=== PATIENT | male | born 1930 | race Caucasian/White ===

== ENCOUNTER 2017-02-18 20:52 | Inpatient (IN) | payer MEDICARE, BC ==
[~2017-02-18] VITALS: Ht 177.8 cm; Wt 98.1 kg
[~2017-02-18 20:52] MED LIST: AMLO10TA PO; ASPI1TAB PO; ASPI81TA PO; BACITAB PO; BUPR15TA PO; DULC10SU2 PO; ELIQ2.5T PO; ENTO3CAP5 PO; EUCECRE3 TOP; FERR32TA PO; FLON0.054; FLUD0.1T PO; FURO20TA2 PO; IMOD2CHW PO; KLOR1TAB77 PO; LASI20TA PO; LOVA40TA PO; MAGN1TAB25 PO; MAGNESIUM HYDROXIDE PO; MAPA325T2 PO; MEGA40SU PO; MEGE400S9 PO; METO100T5 PO; METO50TA2 PO; MICR10CA PO; REME15TA PO; SPIR25TA2 PO; TAMS0.4C2 PO; TRAM50TA2 PO; TYLE325T5 PO; VITA100072 PO; VITA500T PO; WELL100T PO
[2017-02-18 22:41] LABS: BASO % 0.5 % (0.0-1.0); EOS # 0.1 10^3/uL (0.0-0.50); EOS % 1.2 % (0.0-3.0); IMMATURE GRANULOCYTE % 0.4 % (0-0); LYMPH # 1.7 10^3/uL (1.5-4.5); LYMPH % 19.6 % (24.0-44.0); MEAN CORPUSCULAR HEMOGLOBIN 33.1 pg (27.0-33.0); MEAN CORPUSCULAR HGB CONC 34.1 g/dl (32.0-36.5); MEAN CORPUSCULAR VOLUME 97.1 fl (80.0-96.0); MONO # 0.8 10^3/uL (0.0-0.8); MONO % 9.6 % (0.0-5.0); NEUTROPHILS # 5.8 10^3/uL (1.8-7.7); NEUTROPHILS % 68.7 % (36.0-66.0); PLATELET COUNT, AUTOMATED 140 10^3/uL (150-450); RED CELL DISTRIBUTION WIDTH 12.7 % (11.5-14.5); WHITE BLOOD COUNT 8.5 10^3/uL (4.0-10.0)
[2017-02-18 23:05] LABS: ALBUMIN 3.2 GM/DL (3.2-5.2); ALBUMIN/GLOBULIN RATIO 0.78 (1.00-1.93); BILIRUBIN,DIRECT 0.2 MG/DL (0.0-0.2); BILIRUBIN,TOTAL 0.8 MG/DL (0.2-1.0); CALCIUM LEVEL 9.1 MG/DL (8.8-10.2); CREATININE FOR GFR 1.88 MG/DL (0.70-1.30); GLOMERULAR FILTRATION RATE 36.4 (>35); INR 1.44; POTASSIUM SERUM 3.9 MEQ/L (3.5-5.1); TOTAL PROTEIN 7.3 GM/DL (6.4-8.2)
--- NOTE | 2017-02-18 23:30 | REPUSA ---
CT of the head Clinical history: trauma. Comparison: 14. Protocol: Multiple axial CT images obtained with 5 mm slice thickness were obtained through the head without administration of contrast. Findings: The ventricles and sulci are symmetric but prominent in size bilaterally. There are periven tricular areas of low attenuation throughout the deep white matter. There is no evidence of acute hem orrhage or infarct. There is no midline shift, mass effect, or extra-axial fluid collection. The osse ous structures are unremarkable. The visualized paranasal sinuses and mastoid air cells are clear. Impression: No acute hemorrhage or infarct. Findings are consistent with age-related atrophy and cytotechnologist/histotechnologist maurizio small vessel ischemic disease.
--- NOTE | 2017-02-18 23:30 | REPUSA ---
CT of the abdomen and pelvis without contrast Clinical statement: nausea, vomiting, diarrhea. Technique: Multiple axial CT images were obtained from the base of the lungs to the floor of the pelv is utilizing 5 mm axial slices without administration of contrast. Coronal and sagittal reconstructio ns were also obtained. Comparison: 05/29/2014. Findings: Chest: There is patchy infiltrate in the right lower lobe. Bandlike infiltrate is seen in the lingula of the left lung. Abdomen: The kidneys are normal in size bilaterally. There is no evidence of hydronephrosis or nephro lithiasis. The liver, spleen, pancreas, gallbladder and adrenal glands are unremarkable. The aorta de monstrates normal caliber and contour. There is no abdominal lymphadenopathy or ascites. Pelvis: The bowel is unremarkable, with no obstructive or inflammatory changes. Moderate diffuse sigm oid diverticulosis is noted, without evidence of diverticulitis. The urinary bladder is within normal limits. There is no pelvic lymphadenopathy or ascites. The other pelvic structures appear unremarkab le. Bones: There are no suspicious osseous abnormalities seen. Moderately severe multilevel degenerative disc disease is noted throughout the lower thoracic and lumbar spine. Moderate osteoarthritis of the hip joints is seen bilaterally. Open reduction internal fixation of the proximal left femur is intact . Impression: 1. No obstructive or inflammatory bowel changes. Diffuse sigmoid diverticulosis. 2. No evidence of hydronephrosis or nephrolithiasis. 3. Infiltrate/atelectasis in the right lower lobe. Bandlike infiltrate likely representing scarring i s seen in the lingula of the left lung. 4. Moderately severe multilevel degenerative disc disease and spondylosis is seen throughout spine as described. 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
[2017-02-19] MEDS ORDERED: NS 500 ML IV ONE (00:45)
[2017-02-19] MEDS ORDERED: ELIQ2.5T PO (01:16)
[2017-02-19] MEDS ORDERED: FLOM5CAP PO (01:16)
[2017-02-19] MEDS ORDERED: PATIENT COMMENT (01:18)
[2017-02-19] MEDS ORDERED: NS 1,000 ML IV SCH (04:12)
[2017-02-19] MEDS ORDERED: ACETAMINOPHEN 500 MG TAB PO PRN (04:30)
[2017-02-19] MEDS ORDERED: ONDANSETRON 4MG/2ML VIAL (J2405) IV PRN (04:30)
--- NOTE | 2017-02-19 04:35 | HPEPDOC ---
General Date of Admission 02/19/2017 Primary Care Physician: SUZY PRICE DO Attending Physician: PARAM ROUSE MD Chief Complaint The patient is a 86-year-old male admitted with a reason for visit of Medical Complaint. Source: Patient Exam Limitations: Mild cognitive slowing History of Present Illness Mr. Mcgee is an 86-year-old male who is brought to the emergency department presumably by his son for evaluation of diarrhea, and perhaps gait instability and fall. Regrettably, no family is available at this time to provide history. Apparently there were earlier but have since gone home. The patient is not a very good historian, he is oriented 3, but often forgets the question and needs constant prompting, and even when he is in the middle of giving an answer he will lose his train of thought and will ask what the question was once again. It appears that he has had diarrhea for at least a couple of months, and he fell and hit his head on a dresser yesterday, therefore he does have a scalp skin tear on the anterior midline. Apparently he does walk with a walker at home, but has been becoming more unsteady, hence why he fell. He is unable to provide any additional details as to the nature of his fall. It does not seem as though he had any presyncopal or syncopal symptoms, he does not believe that he lost consciousness. Home Medications Scheduled Apixaban Base (Eliquis) 2.5 Mg Tab, 2.5 MG PO BID, (Reported) Fludrocortisone Acetate (Fludrocortisone Acetate) 0.1 Mg Tab, 0.1 MG PO DAILY, ( Reported) Furosemide (Lasix) 20 Mg Tab, 40 MG PO BID, (Reported) Lovastatin (Lovastatin) 40 Mg Tab, 40 MG PO QHS, (Reported) Metoprolol Tartrate (Metoprolol Tartrate) 100 Mg Tab, 100 MG PO BID, (Reported) Mirtazapine (Remeron) 15 Mg Tab, 15 MG PO QHS, (Reported) Spironolactone (Spironolactone) 25 Mg Tab, 25 MG PO DAILY, (Reported) Tamsulosin Hydrochloride (Flomax) 0.4 Mg Cap, 0.4 MG PO DAILY, (Reported) Miscellaneous Medications [Patient Comment] , (Reported) USED EXTERNAL MEDICATION HISTORY TO CONFIRM MEDICATION. PATIENT UNAWARE OF MEDICATION; DAUGHTER DOES PATIENT'S MEDICATIONS. DAUGHTER IS AT HOME, WILL TIME IN THE MORNING Allergies Coded Allergies: No Known Drug Allergy (Unverified Allergy, Unknown, 09/01/12) Past Medical History Medical History Obtained from medical record: Hypertension Hyperlipidemia Atrial fibrillation Coronary artery disease status post angioplasty Congestive heart failure, systolic function was estimated to be 50% which is lower limits of normal on echocardiogram in 2014. Valvular heart disease (severe mitral regurgitation and tricuspid regurgitation) Chronic kidney disease stage III Hyperaldosteronism, on Florinef Multiple skin cancers Surgical History Remote cardiac angioplasty Remote urethral stent Skin cancer resection Family History Significant Family History: Noncontributory Secondary to patient's advanced age Social History * Smoker: Denies Alcohol: other (he states he cannot remember, when asked a few different ways, it appears that he may have an occasional beer, but is not a regular drinker.) Drugs: denies Recent Travel/Sick Contacts: Denies: Recent travel Psychosocial History: No pertinent psych hx He lives at home, and his son lives in the basement with him and helps take care of him. Review of Symptoms Other systems It is difficult to ask questions as he frequently forgets what the question was. He believes he has been suffering from diarrhea for a couple months, he believes that he has been getting weaker recently and this is why he fell. Otherwise, the remainder of his review of systems is uniformly negative, it appears that he is not much of a complainer. Physical Examination General Exam: Positive: No Acute Distress, Negative: Alert, Cooperative Eye Exam: Positive: PERRLA, Conjunctiva & lids normal, EOMI, Negative: Sclera icteric ENT Exam: Positive: Atraumatic, Mucous membr. moist/pink, Pharynx Normal Neck Exam: Positive: Supple, Negative: JVD, thyromegaly Chest Exam: Positive: Clear to auscultation, Normal air movement Heart Exam: Positive: Rate Normal, Regular Rhythm, Normal S1, Normal S2, Negative: Murmurs, Rubs Abdomen Exam: Positive: Normal bowel sounds, Soft, Negative: Tenderness, Hepatospenomegaly Extremity Exam: Positive: Normal pulses, Negative: Clubbing, Cyanosis, Edema Skin Exam: Positive: Nl turgor and temperature, Negative: Breakdown, Lesion Neuro Exam: Positive: Normal Speech, Cranial Nerves 3-12 NL Psych Exam: Positive: Mood NL, Oriented x 3, Negative: Mental status NL, Memory Intact Vital Signs Vital Signs Date Time Temp Pulse Resp B/P (MAP) Pulse Ox O2 Delivery O2 Flow Rate FiO2 02/19/17 03:49 86 20 121/74 (90) 99 02/18/17 21:03 98.1 Room Air Laboratory Data Labs 24H Laboratory Tests 2 02/18/17 22:32: White Blood Count 8.5, Red Blood Count 4.56, Hemoglobin 15.1, Hematocrit 44.3, Mean Corpuscular Volume 97.1H, Mean Corpuscular Hemoglobin 33.1H, Mean Corpuscular Hemoglobin Concent 34.1, Red Cell Distribution Width 12.7, Platelet Count 140L, Neutrophils (%) (Auto) 68.7H, Lymphocytes (%) (Auto) 19.6L, Monocytes (%) (Auto) 9.6H, Eosinophils (%) (Auto) 1.2, Basophils (%) (Auto) 0.5 , Neutrophils # (Auto) 5.8, Lymphocytes # (Auto) 1.7, Monocytes # (Auto) 0.8, Eosinophils # (Auto) 0.1, Basophils # (Auto) 0.0, Immature Granulocyte # (Auto) 0.0, Nucleated Red Blood Cells % (auto) 0.0, Prothrombin Time 17.9H, Prothromb Time International Ratio 1.44, Activated Partial Thromboplast Time 37.7, Anion Gap 8, Glomerular Filtration Rate 36.4, Lactic Acid Level 1.7, Calcium Level 9.1 , Aspartate Amino Transf (AST/SGOT) 15, Alanine Aminotransferase (ALT/SGPT) 19, Alkaline Phosphatase 106, Total Bilirubin 0.8, Direct Bilirubin 0.2, Total Protein 7.3, Albumin 3.2, Albumin/Globulin Ratio 0.78L, Lipase 43L CBC/BMP Laboratory Tests 02/18/17 22:32 Red Blood Count 4.56, Mean Corpuscular Volume 97.1 H, Mean Corpuscular Hemoglobin 33.1 H, Mean Corpuscular Hemoglobin Concent 34.1, Red Cell Distribution Width 12.7, Neutrophils (%) (Auto) 68.7 H, Lymphocytes (%) (Auto) 19.6 L, Monocytes (%) (Auto) 9.6 H, Eosinophils (%) (Auto) 1.2, Basophils (%) ( Auto) 0.5, Neutrophils # (Auto) 5.8, Lymphocytes # (Auto) 1.7, Monocytes # (Auto ) 0.8, Eosinophils # (Auto) 0.1, Basophils # (Auto) 0.0 Problems (1) Diarrhea with dehydration Status: Acute Problem Text: He does appear to be clinically dry, therefore we will start him on gentle rehydration of 75 mL per hour for 1 L. And this is also likely the cause for his worsening renal function. Will order stool for polys segmented neutrophils to determine if this may be of an inflammatory nature, a GI panel has been ordered for infectious etiologies, and as this appears to be chronic I have also ordered a stool osmolality, sodium, potassium such that we may be able to calculate as stool osmotic gap to determine whether this is from secretory/motility issues or an osmotic issue. I also ordered a qualitative fecal fat for evaluation of malabsorption. We'll hold off on antidiarrheals at this time until his GI panel has returned. (2) Acute kidney injury superimposed on CKD Status: Acute Problem Text: Likely secondary to dehydration, gentle fluid rehydration as indicated above. Need to be cautious with fluid repletion especially given that he has chronic kidney disease as well as congestive heart failure. (3) Gait instability Status: Acute Problem Text: Although he does have a walker at home, he states that he has been feeling more weak. This is likely due to the aforementioned issues. We will have physical therapy evaluate and treat him as necessary. We will keep him out of bed ad kandice. with assistance for now. (4) Skin tear Status: Acute Problem Text: He fell and hit his head on the day prior to admission. He currently has a large Band-Aid on his head, the wound does not appear to be infected, there is some blood under the bandage, but not on unreasonable amount despite the fact that he is on Eliquis. Continue with simple wound care. (5) Chronic systolic (congestive) heart failure Status: Chronic (6) Afib Status: Chronic Problem Text: Continue with home dose of Eliquis (7) Hypoaldosteronism Status: Chronic (8) Hyperlipidemia Status: Chronic (9) Urinary frequency Status: Chronic (10) Coronary artery disease Status: Chronic (11) Valvular heart disease Status: Chronic Plan / VTE VTE Prophylaxis Ordered?: Yes (Eliquis) GONZALES DURHAM DO Feb 19, 2017 03:56
[2017-02-19 05:35] VITALS: BP 123/76
[2017-02-19 06:00] VITALS: BP_SYST 113; BP_SYST 115; BP_SYST 119; BP_DIAS 74; BP_DIAS 78; BP_DIAS 79
[2017-02-19] MEDS ORDERED: FERR325T16 PO (06:09)
[2017-02-19] MEDS ORDERED: VITA500T PO (06:09)
[2017-02-19] MEDS ORDERED: MAGN400T2 PO (06:09)
[2017-02-19 08:26] LABS: MAGNESIUM LEVEL 2.7 MG/DL (1.8-2.4)
[2017-02-19] MEDS ORDERED: ENOXAPARIN 30 MG/0.3 ML SYR (J1650) SC SCH (09:00)
[2017-02-19] MEDS: METOPROLOL TART 25 MG TABLET PO SCH ×2 (10:47→20:47)
[2017-02-19] MEDS: FERROUS GLUCONATE 324 MG TAB PO SCH ×2 (10:47→21:15)
[2017-02-19] MEDS: FLUDROCORTISONE ACETATE 0.1 MG TAB PO SCH (10:47)
[2017-02-19] MEDS: APIXABAN 2.5 MG TAB (ELIQUIS) PO SCH ×2 (10:47→21:15)
[2017-02-19] MEDS: TAMSULOSIN 0.4 MG CAP PO SCH (10:48)
[2017-02-19] MEDS: ASCORBIC ACID 500 MG TAB PO SCH ×2 (10:48→21:14)
[2017-02-19] MEDS: metroNIDAZOLE (FLAGYL) 500 MG TAB PO SCH ×2 (13:11→21:15)
[2017-02-19 14:00] VITALS: BP 110/62
--- NOTE | 2017-02-19 16:11 | IPN ---
DATE: 02/19/2017 SUBJECTIVE: Patient seen and examined in the room today. Patient stated he has been working hard with physical therapy. Has had one bowel movement in the last 24 hours. When discussed the episode of fall, patient stated he does not remember too many details. He is not sure whether it was a mechanical fall or he felt weak and it resulted in a fall. OBJECTIVE: VITAL SIGNS: Temperature 96.6, pulse 76, respirations 16, blood pressure is 123/76, pulse oximetry is 98% in room air. GENERAL: No sign of acute distress, alert and oriented times three. HEENT: Normocephalic, atraumatic. Extraocular motor grossly intact. CARDIOVASCULAR: Positive S1, S2, irregularly irregular. LUNGS: Clear to auscultation bilaterally. ABDOMEN: Soft, nontender, nondistended. Bowel sounds present. EXTREMITIES: No edema. No sign of cyanosis. LABORATORY DATA: From 10:30 p.m. on 02/18/2017 show WBC of 8.5, hemoglobin 15.1, hematocrit 44.3, platelet count is 140. Sodium is 136, potassium 3.9, chloride is 96, carbon dioxide 32, BUN 24, creatinine 1.8, GFR is 36.4, fasting glucose 102, lactic acid 1.7, calcium 9.1, magnesium is 2.7. Total bilirubin is 0.8, direct bilirubin 0.2, AST 15, ALT 19, alkaline phosphatase 106, total protein 7.3, albumen 3.2. Lipase is 43. Microbiology: Gastrointestinal (GI) panel positive for Clostridium (C) difficile. ASSESSMENT AND PLAN: 1. Clostridium (C) difficile colitis. Patient is on gentle hydration, watching intake and output. Patient started on oral Flagyl. 2. Acute kidney injury secondary to prerenal azotemia, most likely due to C. difficile colitis. Patient on gentle hydration. Patient started on antibiotics for C. difficile. Followup with renal functions. 3. Fall, possibly due to severe dehydration from C. difficile colitis. Followup with physical therapy. Patient is currently being treated for C. difficile, and patient has been receiving fluid resuscitation. 4. Chronic systolic heart failure. Currently patient's is clinically dry. Will be very cautious with fluid hydration. Monitor intake and output. No exacerbation at this moment. 5. Atrial fibrillation, on Eliquis. Currently patient did have fluctuation of the heart rate. Patient is on metoprolol 25 mg by mouth twice a day. 6. History of hyperaldosteronism, on Florinef. 7. Hyperlipidemia. 8. History of coronary artery disease, on simvastatin. 9. History of valvular disease. 10. Hypertension. Blood pressure is in the satisfactory range. There is no orthostatic hypotension. 11. History of chronic kidney disease (CKD), stage III. 12. History of multiple skin cancers, status post resection. 13. Deep vein thrombosis (DVT) prophylaxis, on Eliquis. MTDD
[2017-02-19] MEDS: SIMVASTATIN 40 MG TAB PO SCH (21:15)
[2017-02-19] MEDS: MIRTAZAPINE 15 MG TAB PO SCH (21:15)
[2017-02-19 22:00] VITALS: BP 110/69
[2017-02-20] MEDS: metroNIDAZOLE (FLAGYL) 500 MG TAB PO SCH ×3 (05:03→20:41)
[2017-02-20 06:00] VITALS: BP 129/62
[2017-02-20 06:25] LABS: MEAN CORPUSCULAR HEMOGLOBIN 33.1 pg (27.0-33.0); MEAN CORPUSCULAR HGB CONC 33.7 g/dl (32.0-36.5); MEAN CORPUSCULAR VOLUME 98.3 fl (80.0-96.0); RED CELL DISTRIBUTION WIDTH 12.9 % (11.5-14.5); WHITE BLOOD COUNT 7.6 10^3/uL (4.0-10.0)
[2017-02-20 06:43] LABS: CALCIUM LEVEL 8.4 MG/DL (8.8-10.2); CREATININE FOR GFR 1.48 MG/DL (0.70-1.30); POTASSIUM SERUM 3.2 MEQ/L (3.5-5.1)
[2017-02-20 08:26] VITALS: BP 121/76
[2017-02-20] MEDS ORDERED: INFLUENZA VIRUS VACCINE HIGH DOSE 0.5 ML SYRINGE (90662) IM ONE (09:00)
[2017-02-20] MEDS ORDERED: PNEUMOCOCCAL VACCINE 0.5ML SYRINGE(90732) PNEUMOVAX 23 IM ONE (09:00)
[2017-02-20] MEDS ORDERED: POTASSIUM CHLORIDE 10 MEQ SR TABLET PO ONE (09:30)
[2017-02-20] MEDS: APIXABAN 2.5 MG TAB (ELIQUIS) PO SCH ×2 (10:30→20:42)
[2017-02-20] MEDS: FERROUS GLUCONATE 324 MG TAB PO SCH ×2 (10:30→20:42)
[2017-02-20] MEDS: TAMSULOSIN 0.4 MG CAP PO SCH (10:31)
[2017-02-20] MEDS: METOPROLOL TART 25 MG TABLET PO SCH ×2 (10:31→20:42)
[2017-02-20] MEDS: ASCORBIC ACID 500 MG TAB PO SCH ×2 (10:31→20:42)
[2017-02-20] MEDS: FLUDROCORTISONE ACETATE 0.1 MG TAB PO SCH (10:31)
[2017-02-20 14:27] VITALS: BP 91/55
[2017-02-20 14:37] VITALS: BP 98/56
[2017-02-20] MEDS ORDERED: SODIUM CHLORIDE 0.9% 1000 ML IV ONE (15:30)
--- NOTE | 2017-02-20 15:37 | IPN ---
DATE: 02/20/2017 SUBJECTIVE: Patient seen and examined in the room today. Patient is alert and awake, able to answer some of the questions correctly. Patient knows about the location and the person; however, he does not remember the year. During encountered, patient's [id number] is also present in the room. She stated patient's current mentation is not at baseline. When asked about the episode of fall, patient still cannot recall the whole event. He just does not remember what happened. Patient still has loose stools. Per patient, patient started having loose stools prior to the current admission. Patient does not have recent antibiotic use. Patient has not had recent hospitalizations. VITAL SIGNS: Temperature 96.3, pulse is 67, respirations 18, blood pressure is 121/76, pulse oximetry is 96% in room air. GENERAL: Alert and awake in no apparent distress. Alert and oriented times two. Does not remember the year. HEENT: Still has some bandage at the mid front forehead. No active bleeding through the bandage. Extraocular motor grossly intact. CARDIOVASCULAR: Positive S1, S2, irregularly irregular. LUNGS: Clear to auscultation bilaterally. ABDOMEN: Soft, nontender, nondistended. Bowel sounds present. EXTREMITIES: No edema. No sign of cyanosis. LABORATORY DATA: WBC 7.6, hemoglobin is 14, hematocrit 41.6, platelet count is 134. Sodium 139, potassium 3.2, chloride is 103, carbon dioxide 30, BUN 24, creatinine 1.48, GFR is 48, fasting glucose 91, calcium 8.4, magnesium 2.4. ASSESSMENT AND PLAN: 1. Clostridium (C) difficile colitis. Patient started on oral Flagyl, Bacid. Will follow the patient's bowel movements. 2. Acute kidney injury secondary to prerenal azotemia, most likely secondary to increased output from frequent C. difficile diarrhea. Patient is in gentle hydration. Patient is currently treated for active C. difficile. Renal function is improving. Patient does have a history of systolic dysfunction. We are very cautious regarding the fluid resuscitation. 3. Fall, possibly due to severe dehydration from C. difficile. Patient cannot get more history at this moment. Orthostatics were measured, and he has been negative. Patient continues to work with physical therapy. 4. Atrial fibrillation, on metoprolol with holding parameter. Patient is on Eliquis 5. Chronic systolic dysfunction. We are very cautious regarding the fluid resuscitation. 6. History of Eusebio disease, on Florinef. 7. Dyslipidemia. 8. History of coronary artery disease, on simvastatin. 9. History of valvular disease. 10. Hypertension. Currently patient is hypotensive. The most recent blood pressure is 98/56. Metoprolol has holding parameters. Patient may benefit from another bolus of fluid. 11. History of chronic kidney disease (CKD), stage III. Renal function is improving. Patient is currently being treated for acute kidney injury. 12. History of multiple skin cancers, status post resection. 13. Deep vein thrombosis (DVT) prophylaxis, on Eliquis.
[2017-02-20 16:15] VITALS: BP 118/76
[2017-02-20] MEDS: LACTOBACILLUS ACIDOPHILUS CAP (BACID) PO SCH (17:53)
[2017-02-20 20:35] VITALS: BP 105/63
[2017-02-20] MEDS: SIMVASTATIN 40 MG TAB PO SCH (20:41)
[2017-02-20] MEDS: MIRTAZAPINE 15 MG TAB PO SCH (20:42)
--- NOTE | 2017-02-20 22:11 | ECGEPIP ---
Stationary ECG Study [facility] Test Date: 2017-02-20 Pat Name: MARLEN MANN Department: Room: [place] [address] Gender: M Astro Technician: ANTONIO : 1930 Requested By: JANELLE IRELAND Order Number: [id number] Reading MD: Eliseo Henry Measurements Intervals [place] Rate: 72 P: ID: 0 QRS: 12 QRSD: 102 T: -15 QT: 414 QTc: 454 Interpretive Statements ATRIAL FIBRILLATION LOW-VOLTAGE QRS COMPLEXES NOTED IN THE LIMB LEADS COMPARED TO THE LAST 2 TRACINGS IN THE SYSTEM, HEART RATE IS NOW SLOWER OTHERWISE NO SIGNIFICANT CHANGES ABNORMAL RHYTHM ECG Electronically Signed On 02-20-2017 22:10:48 EDT by Eliseo Henry
[2017-02-21] MEDS: metroNIDAZOLE (FLAGYL) 500 MG TAB PO SCH ×3 (05:41→21:28)
[2017-02-21 06:00] VITALS: BP 110/66
[2017-02-21 06:57] LABS: MEAN CORPUSCULAR HEMOGLOBIN 32.7 pg (27.0-33.0); MEAN CORPUSCULAR HGB CONC 33.2 g/dl (32.0-36.5); MEAN CORPUSCULAR VOLUME 98.5 fl (80.0-96.0); RED CELL DISTRIBUTION WIDTH 12.8 % (11.5-14.5); WHITE BLOOD COUNT 6.4 10^3/uL (4.0-10.0)
[2017-02-21 07:25] LABS: ANION GAP 5 MEQ/L (8-16); BLOOD UREA NITROGEN 16 MG/DL (7-18); CALCIUM LEVEL 8.2 MG/DL (8.8-10.2); CARBON DIOXIDE LEVEL 25 MEQ/L (21-32); CHLORIDE LEVEL 109 MEQ/L (98-107); CREATININE FOR GFR 1.21 MG/DL (0.70-1.30); GLOMERULAR FILTRATION RATE > 60.0 (>35); GLUCOSE, FASTING 104 MG/DL (83-110); MAGNESIUM LEVEL 2.2 MG/DL (1.8-2.4); POTASSIUM SERUM 3.9 MEQ/L (3.5-5.1); SODIUM LEVEL 139 MEQ/L (136-145)
[2017-02-21] MEDS: FLUDROCORTISONE ACETATE 0.1 MG TAB PO SCH (08:30)
[2017-02-21] MEDS: APIXABAN 2.5 MG TAB (ELIQUIS) PO SCH ×2 (08:30→21:28)
[2017-02-21] MEDS: LACTOBACILLUS ACIDOPHILUS CAP (BACID) PO SCH ×3 (08:30→18:22)
[2017-02-21] MEDS: ASCORBIC ACID 500 MG TAB PO SCH ×2 (08:30→21:28)
[2017-02-21] MEDS: METOPROLOL TART 25 MG TABLET PO SCH ×2 (08:30→21:00)
[2017-02-21] MEDS: TAMSULOSIN 0.4 MG CAP PO SCH (08:30)
[2017-02-21] MEDS: FERROUS GLUCONATE 324 MG TAB PO SCH ×2 (08:30→21:29)
[2017-02-21 14:00] VITALS: BP 103/64
--- NOTE | 2017-02-21 16:58 | IPN ---
DATE: 02/21/2017 SUBJECTIVE: Patient seen and examined in the room today. Patient still shows some sign of confusion. He knows about the name of the place and the person; however, he does not remember the year. Per nursing staff, patient has been not able to remember the nursing staff who has been taking care of the patient for the past few days. Staff has also notified us that patient had an isolated episode of confusion previous, but that confusion was resolved spontaneously within 24 hours. Patient does not have any recurrence of the hypotension. Patient has good oral intake. Does not have any loose stools in the last 24 hours. OBJECTIVE: VITAL SIGNS: Temperature 97.1, pulse 82, respirations 18, blood pressure is 110/66, pulse oximetry 97% on room air. GENERAL: No sign of acute distress. Patient is alert and awake. Not fully oriented. Not oriented to time. HEENT: There is a bandage on the mid front forehead. No active bleeding noted. Extraocular motor grossly intact. CARDIOVASCULAR: Positive S1, S2, irregularly irregular. LUNGS: Clear to auscultation bilaterally. ABDOMEN: Soft, nontender, nondistended. Bowel sounds present. EXTREMITIES: No edema. No sign of cyanosis. LABORATORY DATA: WBC 6.4, hemoglobin 12.7, hematocrit 38.2, platelet count is 124. Sodium is 139, potassium 3.9, chloride is 109, carbon dioxide 25, BUN 16, creatinine is 1.21, GFR greater than 60, fasting glucose is 104, calcium 8.2, magnesium 2.2. ASSESSMENT AND PLAN: 1. Clostridium (C) difficile colitis. Patient started on oral Flagyl. Supplement with Bacid. Patient has not had a soft stool in the last 24 hours. 2. Acute kidney injury secondary to prerenal azotemia. Patient had intravenous (IV) fluid resuscitation intermittently. Patient's renal function almost returned to normal range today. On admission patient had a creatinine of 1.88; today is 1.21. Glomerular filtration rate (GFR) was 36.4; today is greater than 60. 3. Altered mental status. May be related to patient's current active disease process. Patient is being treated for C. difficile. Will continue to monitor the confusion. 4. Fall, possibly due to severe dehydration from C. difficile. Patient had received fluid resuscitation previously. Orthostatic blood pressure was measured, and it was negative. Followup with physical therapy evaluation. 5. Atrial fibrillation, on metoprolol with holding parameters. Patient is on Eliquis. 6. Chronic systolic dysfunction. We will be very cautious regarding the fluid usage. Continue to monitor intake and output and daily weight. Currently the patient does not have a sign of fluid overload. 7. Hastings's disease, on Florinef. 8. Dyslipidemia. 9. History of coronary artery disease, on statin. 10. History of valvular disease. 11. Hypertension. Patient remains to have soft blood pressures. Blood pressure systolic is around 105 with a diastolic around 65. 12. History of multiple skin cancers status post resection. 13. Deep vein thrombosis (DVT) prophylaxis, on Eliquis.
[2017-02-21 20:40] VITALS: BP 116/68
[2017-02-21] MEDS: MIRTAZAPINE 15 MG TAB PO SCH (21:28)
[2017-02-21] MEDS: SIMVASTATIN 40 MG TAB PO SCH (21:29)
[2017-02-22] MEDS: metroNIDAZOLE (FLAGYL) 500 MG TAB PO SCH ×3 (05:09→21:38)
[2017-02-22 05:45] VITALS: BP 98/60
[2017-02-22 07:08] LABS: CALCIUM LEVEL 8.3 MG/DL (8.8-10.2); CREATININE FOR GFR 1.31 MG/DL (0.70-1.30); GLOMERULAR FILTRATION RATE 55.2 (>35); MAGNESIUM LEVEL 2.2 MG/DL (1.8-2.4); POTASSIUM SERUM 3.8 MEQ/L (3.5-5.1)
[2017-02-22 07:13] LABS: MEAN CORPUSCULAR HEMOGLOBIN 32.3 pg (27.0-33.0); MEAN CORPUSCULAR HGB CONC 32.9 g/dl (32.0-36.5); MEAN CORPUSCULAR VOLUME 98.1 fl (80.0-96.0); RED CELL DISTRIBUTION WIDTH 12.8 % (11.5-14.5); WHITE BLOOD COUNT 7.5 10^3/uL (4.0-10.0)
[2017-02-22] MEDS: FERROUS GLUCONATE 324 MG TAB PO SCH ×2 (08:39→21:38)
[2017-02-22] MEDS: FLUDROCORTISONE ACETATE 0.1 MG TAB PO SCH (08:39)
[2017-02-22] MEDS: APIXABAN 2.5 MG TAB (ELIQUIS) PO SCH ×2 (08:40→21:38)
[2017-02-22] MEDS: LACTOBACILLUS ACIDOPHILUS CAP (BACID) PO SCH ×3 (08:40→17:26)
[2017-02-22] MEDS: TAMSULOSIN 0.4 MG CAP PO SCH (08:40)
[2017-02-22] MEDS: ASCORBIC ACID 500 MG TAB PO SCH ×2 (08:40→21:38)
[2017-02-22] MEDS: METOPROLOL TART 25 MG TABLET PO SCH ×2 (08:44→21:38)
[2017-02-22 14:00] VITALS: BP 108/66
--- NOTE | 2017-02-22 14:58 | IPN ---
DATE: 02/22/2017 SUBJECTIVE: Patient seen and examined with his son. At the time of the encounter, the patient's mentation is improving, remembered the name of the place, the name of the president and with some hints the patient was able to recall my name and also the year. The patient's son is also present in the room and gave a lot of previous history. The patient was has had frequent hospitalizations. Two years ago there are multiple incidents that the patient had altered mental status changes during the hospitalization. In the last two years, the patient still has intermittent episodes of altered mental status, but usually those episodes would resolve within 24 hours. Per the son, prior to current hospitalization, the patient did have significant altered mental status change and he felt the patient had significant dehydration and confusion that resulted in the fall. The patient's son has been visiting the patient on a daily basis prior to the hospitalization. OBJECTIVE: VITAL SIGNS: Temperature 97.7, pulse 78, respirations 18, blood pressure is 98/60, pulse oximetry 95% on room air. GENERAL: No sign of acute distress. Fatigued, alert and oriented times three. HEENT: There is a dressing on the mid front forehead. No discharge or bleeding noted. Extraocular motor grossly intact. CARDIOVASCULAR: Positive S1, S2, irregularly irregular. Heart rate in the satisfactory range. LUNGS: Clear to auscultation bilaterally. ABDOMEN: Soft, nontender, nondistended. Bowel sounds present. EXTREMITIES: No edema. No sign of cyanosis. LABORATORY DATA: WBC 7.5, hemoglobin 13.5, hematocrit 41, platelet count is 152. Sodium is 141, potassium 3.8, chloride 108, carbon dioxide 27, BUN 13, creatinine 1.31, GFR is 55.2, fasting glucose 105, calcium is 8.3, magnesium 2.2. ASSESSMENT AND PLAN: 1. Clostridium (C) difficile colitis. Patient was started on oral Flagyl. Supplement with Bacid. Patient has not had a bowel movement in the last 48 hours. Denies any abdominal pain. 2. Acute kidney injury. Previously, the patient received intermittent fluid resuscitation. Fluid was given with caution due to history of congestive heart failure (CHF). For the past 24 hours, the patient has started to show decrease of renal function. During physical examination, the patient was determined to have some degree of dehydration. Per staff, the patient's oral intake has not been optimal. The patient understands that he needs to drink in order to maintain adequate hydration. Continue to monitor. If the patient continues to have worsening function, we will consider start giving intermittent fluid resuscitation. 3. Altered mental status. May be related to patient's current active disease process. At baseline, the patient does have similar episodes at home. Those episodes usually resolve within 24 hours. The majority of altered mental status episodes occur when the patient has physical distress. Continue to monitor. The patient's mentation is improving in the last 24 hours. 4. Fall, most likely secondary to severe dehydration and physical deconditioning. Continue to follow with physical therapy (PT). The patient is being treated for his active infection. 5. Atrial fibrillation. On metoprolol. On Eliquis. In the satisfactory range. 6. Chronic systolic dysfunction. Currently the patient does not have a sign of fluid overload. In fact, the patient does show some signs of dehydration due to poor oral intake. We will use fluid with caution. 7. [place]'s disease, on Florinef. 8. Dyslipidemia. 9. History of coronary artery disease, on statin. 10. History of valvular disease. 11. Hypertension. Patient currently has a soft blood pressure. Continue to monitor. The patient is currently on metoprolol, which is also used for his atrial fibrillation. Most of the time, the patient's systolic blood pressure is greater than 100. 12. History of multiple skin cancers status post resection. 13. Deep vein thrombosis (DVT) prophylaxis, on Eliquis.
[2017-02-22 20:00] VITALS: BP 151/80
[2017-02-22] MEDS: SIMVASTATIN 40 MG TAB PO SCH (21:38)
[2017-02-22] MEDS: MIRTAZAPINE 15 MG TAB PO SCH (21:38)
[2017-02-23 05:40] VITALS: BP 113/70
[2017-02-23] MEDS: metroNIDAZOLE (FLAGYL) 500 MG TAB PO SCH ×3 (06:00→21:55)
[2017-02-23 07:06] LABS: MEAN CORPUSCULAR HEMOGLOBIN 33.2 pg (27.0-33.0); MEAN CORPUSCULAR HGB CONC 33.3 g/dl (32.0-36.5); MEAN CORPUSCULAR VOLUME 99.5 fl (80.0-96.0); RED CELL DISTRIBUTION WIDTH 12.9 % (11.5-14.5); WHITE BLOOD COUNT 6.9 10^3/uL (4.0-10.0)
[2017-02-23 07:22] LABS: ANION GAP 7 MEQ/L (8-16); BLOOD UREA NITROGEN 12 MG/DL (7-18); CALCIUM LEVEL 8.8 MG/DL (8.8-10.2); CARBON DIOXIDE LEVEL 23 MEQ/L (21-32); CHLORIDE LEVEL 110 MEQ/L (98-107); CREATININE FOR GFR 1.11 MG/DL (0.70-1.30); GLOMERULAR FILTRATION RATE > 60.0 (>35); GLUCOSE, FASTING 97 MG/DL (83-110); MAGNESIUM LEVEL 2.3 MG/DL (1.8-2.4); POTASSIUM SERUM 4.3 MEQ/L (3.5-5.1); SODIUM LEVEL 140 MEQ/L (136-145)
[2017-02-23] MEDS: ASCORBIC ACID 500 MG TAB PO SCH ×2 (08:35→21:55)
[2017-02-23] MEDS: METOPROLOL TART 25 MG TABLET PO SCH ×2 (08:35→21:55)
[2017-02-23] MEDS: APIXABAN 2.5 MG TAB (ELIQUIS) PO SCH ×2 (08:35→21:55)
[2017-02-23] MEDS: LACTOBACILLUS ACIDOPHILUS CAP (BACID) PO SCH ×3 (08:35→19:07)
[2017-02-23] MEDS: TAMSULOSIN 0.4 MG CAP PO SCH (08:35)
[2017-02-23] MEDS: FERROUS GLUCONATE 324 MG TAB PO SCH ×2 (08:35→21:55)
[2017-02-23] MEDS: FLUDROCORTISONE ACETATE 0.1 MG TAB PO SCH (08:47)
[2017-02-23 14:00] VITALS: BP 115/62
--- NOTE | 2017-02-23 14:48 | IPN ---
DATE: 02/23/2017 SUBJECTIVE: Patient seen and examined in the room today. Patient still has some signs of confusion, does not remember the year, does not remember the month. After several attempts, the patient is able to recall my name. Patient also remembered the name of the president. The patient's oral intake is starting to recover. The total input and output undocumented. No diarrhea. OBJECTIVE: VITAL SIGNS: Temperature 97, pulse 85, respirations 18, blood pressure is 113/70, pulse oximetry 97% on room air. GENERAL: Patient is alert and awake, but no fully oriented. HEENT: The wound of the mid frontal skull was examined. The lesion is dry. No active bleeding noted, not foul smelling. No purulent discharge noted. Dressing is dry. CARDIOVASCULAR: Positive S1, S2, irregularly irregular. Heart rate in the satisfactory range. LUNGS: Clear to auscultation bilaterally. ABDOMEN: Soft, nontender, nondistended. Bowel sounds present. EXTREMITIES: No edema. No signs of cyanosis. LABORATORY DATA: WBC 6.9, hemoglobin 14.4, hematocrit 43.2, platelet count is 157. Sodium is 140, potassium 4.3, chloride 110, carbon dioxide 23, BUN 12, creatinine 1.11, GFR is greater than 60, fasting glucose 97, calcium 8.8, magnesium 2.3. ASSESSMENT AND PLAN: 1. C. difficile colitis. Patient is on oral Flagyl. Supplement with oral Bacid. No bowel movements since 02/20/2017. Denies any abdominal pain. 2. Acute kidney injury secondary to dehydration. Patient has been receiving intermittent hydration. Patient did have a history of congestive heart failure (CHF). We have been very cautious with regards to fluid usage. Currently renal function is returning to baseline. Patient does have a history of poor oral intake. Will continue to monitor. 3. Altered mental status. History was obtained from the patient's [id number] and the patient's son. Usually when the patient is under physical stress from the acute flare of chronic condition or acute illnesses. The patient has had altered mental status during hospitalization. I will continue to monitor the patient's mentation. Throughout this whole hospitalization, the patient's mentation shows improvements. 4. Atrial fibrillation. On metoprolol and Eliquis. Rate is the satisfactory range. 5. Chronic systolic dysfunction. Currently does not have signs of fluid overload. Patient did have a history of multiple hospitalizations for CHF exacerbation but that was several years ago. 6. Eusebio's disease, on Florinef. 7. Dyslipidemia. 8. History of coronary artery disease, on statin. 9. History of valvular disease. 10. Hypertension. Currently, the patient blood pressure in the satisfactory range. Will continue to monitor. Patient did have soft blood pressure episode, especially on 02/20/2017. At that time, blood pressure medication was on hold and the patient required intermittent fluid resuscitation. Patient is currently on metoprolol. 11. History of multiple skin cancers status post resection. 12. Deep vein thrombosis (DVT) prophylaxis, on Eliquis.
[2017-02-23 20:45] VITALS: BP 128/65
[2017-02-23] MEDS: MIRTAZAPINE 15 MG TAB PO SCH (21:54)
[2017-02-23] MEDS: SIMVASTATIN 40 MG TAB PO SCH (21:55)
[2017-02-24 05:25] VITALS: BP 150/83
[2017-02-24] MEDS: metroNIDAZOLE (FLAGYL) 500 MG TAB PO SCH ×3 (05:48→22:17)
[2017-02-24 07:01] LABS: MEAN CORPUSCULAR HEMOGLOBIN 32.8 pg (27.0-33.0); MEAN CORPUSCULAR HGB CONC 33.3 g/dl (32.0-36.5); MEAN CORPUSCULAR VOLUME 98.8 fl (80.0-96.0); RED CELL DISTRIBUTION WIDTH 12.9 % (11.5-14.5); WHITE BLOOD COUNT 6.1 10^3/uL (4.0-10.0)
[2017-02-24 07:19] LABS: ANION GAP 6 MEQ/L (8-16); BLOOD UREA NITROGEN 11 MG/DL (7-18); CALCIUM LEVEL 8.7 MG/DL (8.8-10.2); CARBON DIOXIDE LEVEL 27 MEQ/L (21-32); CHLORIDE LEVEL 108 MEQ/L (98-107); CREATININE FOR GFR 1.19 MG/DL (0.70-1.30); GLOMERULAR FILTRATION RATE > 60.0 (>35); GLUCOSE, FASTING 95 MG/DL (83-110); MAGNESIUM LEVEL 2.3 MG/DL (1.8-2.4); SODIUM LEVEL 141 MEQ/L (136-145)
[2017-02-24] MEDS: LACTOBACILLUS ACIDOPHILUS CAP (BACID) PO SCH ×3 (10:17→17:37)
[2017-02-24] MEDS: FERROUS GLUCONATE 324 MG TAB PO SCH ×2 (10:18→22:17)
[2017-02-24] MEDS: APIXABAN 2.5 MG TAB (ELIQUIS) PO SCH ×2 (10:18→22:17)
[2017-02-24] MEDS: TAMSULOSIN 0.4 MG CAP PO SCH (10:18)
[2017-02-24] MEDS: ASCORBIC ACID 500 MG TAB PO SCH ×2 (10:18→22:17)
[2017-02-24] MEDS: METOPROLOL TART 25 MG TABLET PO SCH ×2 (10:18→22:17)
[2017-02-24] MEDS: FLUDROCORTISONE ACETATE 0.1 MG TAB PO SCH (10:28)
[2017-02-24 14:00] VITALS: BP 116/58
--- NOTE | 2017-02-24 20:19 | IPN ---
DATE: 02/24/2017 SUBJECTIVE: Patient seen and examined in the room today. The patient still has intermittent disorientation. Per patient, he tries to improve his oral intake. Denies any bowel movements. Denies any fever or chills. OBJECTIVE: VITAL SIGNS: Temperature 97.4, pulse is 111, respirations 20, blood pressure is 150/83, pulse oximetry 98% on room air. GENERAL: No sign of acute distress. Alert and awake. Not fully oriented. HEENT: There is a wound of the mid frontal skull covered with a dressing. The dressing is clean and dry. No purulent discharge noted. CARDIOVASCULAR: Positive S1, S2, irregularly irregular. LUNGS: Clear to auscultation bilaterally. ABDOMEN: Soft, nontender, nondistended. Bowel sounds present. EXTREMITIES: No edema. No signs of cyanosis. LABORATORY DATA: WBC 6.1, hemoglobin 13.5, hematocrit 40.6, platelet count is 165. Sodium is 141, potassium 4.0, chloride 108, carbon dioxide 27, BUN 11, creatinine 1.19, GFR is greater than 60, fasting glucose 95, calcium 8.7, magnesium 2.3. ASSESSMENT AND PLAN: 1. C. difficile colitis. Patient is on oral Flagyl. Supplement with Bacid. No bowel movements since 02/20/2017. Denies any abdominal pain. 2. Acute kidney injury secondary to dehydration. Patient has been receiving intermittent IV hydration. I have encouraged the patient to increase oral intake as tolerated. In the past 48 hours, renal function has returned to normal range. The patient does have a history of congestive heart failure (CHF). We are very cautious with regard to fluid usage. Patient does have a history of poor oral intake. 3. Altered mental status. History was obtained from the patient's son and [id number] to obtain a baseline. The patient had a hospitalization two years ago for congestive heart failure (CHF) exacerbation. When the patient has been in the hospital, the patient has altered mental status changes. Currently, we will continue to monitor the patient. 4. Atrial fibrillation. On metoprolol and Eliquis. The patient does still have intermittent tachycardia. 5. Chronic systolic dysfunction. Currently does not have any sign of fluid overload. Patient did have a sign of dehydration previously. The patient did have multiple hospitalizations for congestive heart failure (CHF) exacerbation but that was many years ago. 6. [place]'s disease, on Florinef. 7. Dyslipidemia. 8. History of coronary artery disease, on statin. 9. History of valvular disease. 10. Hypertension, stable. Continue to monitor. 11. Deep vein thrombosis (DVT) prophylaxis, on Eliquis.
[2017-02-24 22:00] VITALS: BP 115/66
[2017-02-24] MEDS: MIRTAZAPINE 15 MG TAB PO SCH (22:17)
[2017-02-24] MEDS: SIMVASTATIN 40 MG TAB PO SCH (22:17)
[2017-02-25] MEDS: metroNIDAZOLE (FLAGYL) 500 MG TAB PO SCH ×3 (05:42→21:00)
[2017-02-25 06:00] VITALS: BP 114/60
[2017-02-25 07:25] LABS: MEAN CORPUSCULAR HGB CONC 33.5 g/dl (32.0-36.5); MEAN CORPUSCULAR VOLUME 98.5 fl (80.0-96.0); RED CELL DISTRIBUTION WIDTH 13.1 % (11.5-14.5); WHITE BLOOD COUNT 7.1 10^3/uL (4.0-10.0)
[2017-02-25 07:47] LABS: ANION GAP 4 MEQ/L (8-16); BLOOD UREA NITROGEN 10 MG/DL (7-18); CALCIUM LEVEL 8.7 MG/DL (8.8-10.2); CARBON DIOXIDE LEVEL 28 MEQ/L (21-32); CHLORIDE LEVEL 108 MEQ/L (98-107); CREATININE FOR GFR 1.16 MG/DL (0.70-1.30); GLOMERULAR FILTRATION RATE > 60.0 (>35); GLUCOSE, FASTING 106 MG/DL (83-110); MAGNESIUM LEVEL 2.3 MG/DL (1.8-2.4); POTASSIUM SERUM 4.3 MEQ/L (3.5-5.1); SODIUM LEVEL 140 MEQ/L (136-145)
[2017-02-25] MEDS: FERROUS GLUCONATE 324 MG TAB PO SCH ×2 (09:24→21:00)
[2017-02-25] MEDS: ASCORBIC ACID 500 MG TAB PO SCH ×2 (09:25→21:00)
[2017-02-25] MEDS: TAMSULOSIN 0.4 MG CAP PO SCH (09:25)
[2017-02-25] MEDS: APIXABAN 2.5 MG TAB (ELIQUIS) PO SCH ×2 (09:25→20:59)
[2017-02-25] MEDS: FLUDROCORTISONE ACETATE 0.1 MG TAB PO SCH (09:25)
[2017-02-25] MEDS: LACTOBACILLUS ACIDOPHILUS CAP (BACID) PO SCH ×3 (09:25→17:14)
[2017-02-25] MEDS: METOPROLOL TART 25 MG TABLET PO SCH ×2 (09:26→21:00)
[2017-02-25 14:00] VITALS: BP 120/59
--- NOTE | 2017-02-25 16:59 | IPN ---
DATE: 02/25/2017 SUBJECTIVE: Patient seen and examined in the room today. The patient's mentation shows some improvement, able to answer the name of the hospital, the year and the name of the president. The patient also remembered my name. However, when I tried to ask the patient for the year, the patient required multiple redirections. This morning, the patient finally had one big solid bowel movement. OBJECTIVE: VITAL SIGNS: Temperature 97.6, pulse is 77, respirations 17, blood pressure is 114/60, pulse oximetry 96% on room air. GENERAL: No sign of acute distress. Fatigued. Alert and awake. HEENT: Dry oral mucosa. There is a wound in the mid frontal skull covered with a dressing. The dressing is clean and dry. No purulent discharge noted. CARDIOVASCULAR: Positive S1, S2, irregularly irregular. LUNGS: Clear to auscultation bilaterally. ABDOMEN: Soft, nontender, nondistended. Bowel sounds present. EXTREMITIES: No edema. No signs of cyanosis. LABORATORY DATA: WBC 7.1, hemoglobin 13.6, hematocrit 40.6, platelet count is 199. Sodium is 140, potassium 4.3, chloride 108, carbon dioxide 28, BUN 10, creatinine 1.16, GFR is greater than 60, fasting glucose 106, calcium 8.7, magnesium 2.3. ASSESSMENT AND PLAN: 1. C. difficile colitis. The patient has been on oral Flagyl. The patient's Flagyl was started on 02/19/2017. Today is day #7 of Flagyl treatment. The patient will finish 10 to 14 day course of antibiotic. The patient has had one solid bowel movement. Continue with Bacid. 2. Atrial fibrillation. The patient is on Eliquis and metoprolol tartrate. 3. Acute kidney injury secondary to dehydration. Patient has been receiving intermittent IV hydration. Renal function has returned to baseline since 3 days ago. The patient does not show any sign of fluid overload. The patient has a history of congestive heart failure (CHF) and required hospitalizations but that was many years ago. Per patient, patient stated that he has tried to increase oral intake as tolerated. 4. Altered mental status. History was obtained from the patient's son and [id number]. The patient had a hospitalization two years ago for congestive heart failure (CHF) exacerbation. Every time when the patient is under physical stress, the patient's mentation will be altered. Currently, the patient's mentation is improving. Continue to monitor. 5. Chronic systolic dysfunction. Currently does not have any sign of fluid overload. Patient did have a sign of dehydration. Follow input and output and recommend increased oral intake at this moment. 6. [place]'s disease, on Florinef. 7. Dyslipidemia. 8. History of coronary artery disease, on statin. 9. History of valvular disease. 10. Hypertension, stable. Blood pressure in the satisfactory range. 11. Deep vein thrombosis (DVT) prophylaxis, on Eliquis. DISPOSITION: The patient is being treated for Clostridium (C) difficile colitis. The patient had a solid bowel movement. The patient is finishing the course of Flagyl; however, the patient has not passed a physical therapy (PT) evaluation.
[2017-02-25] MEDS: MIRTAZAPINE 15 MG TAB PO SCH (20:59)
[2017-02-25] MEDS: SIMVASTATIN 40 MG TAB PO SCH (21:00)
[2017-02-25 22:00] VITALS: BP 137/67
[2017-02-26] MEDS: metroNIDAZOLE (FLAGYL) 500 MG TAB PO SCH ×3 (05:38→21:19)
[2017-02-26 06:00] VITALS: BP 107/59
[2017-02-26 07:29] LABS: MEAN CORPUSCULAR HEMOGLOBIN 32.9 pg (27.0-33.0); MEAN CORPUSCULAR HGB CONC 33.1 g/dl (32.0-36.5); MEAN CORPUSCULAR VOLUME 99.5 fl (80.0-96.0); RED CELL DISTRIBUTION WIDTH 13.1 % (11.5-14.5); WHITE BLOOD COUNT 6.1 10^3/uL (4.0-10.0)
[2017-02-26] MEDS: APIXABAN 2.5 MG TAB (ELIQUIS) PO SCH ×2 (08:53→21:19)
[2017-02-26] MEDS: LACTOBACILLUS ACIDOPHILUS CAP (BACID) PO SCH ×3 (08:53→17:03)
[2017-02-26] MEDS: TAMSULOSIN 0.4 MG CAP PO SCH (08:53)
[2017-02-26] MEDS: ASCORBIC ACID 500 MG TAB PO SCH ×2 (08:54→21:19)
[2017-02-26] MEDS: FLUDROCORTISONE ACETATE 0.1 MG TAB PO SCH (08:54)
[2017-02-26] MEDS: FERROUS GLUCONATE 324 MG TAB PO SCH ×2 (08:54→21:19)
[2017-02-26] MEDS: METOPROLOL TART 25 MG TABLET PO SCH ×2 (08:58→21:19)
[2017-02-26 11:06] LABS: CALCIUM LEVEL 8.3 MG/DL (8.8-10.2); CREATININE FOR GFR 1.26 MG/DL (0.70-1.30); GLOMERULAR FILTRATION RATE 57.8 (>35); MAGNESIUM LEVEL 2.1 MG/DL (1.8-2.4); POTASSIUM SERUM 4.1 MEQ/L (3.5-5.1)
--- NOTE | 2017-02-26 13:05 | IPN ---
DATE: 02/26/2017 The patient is seen and examined at the bedside. Chart has been reviewed. The patient continues to be disoriented. He is awake, alert, oriented to himself. Answers questions appropriately, but could not tell the date and year. Afebrile overnight. The patient has not any loose bowel movements. Tolerating his diet well. No nausea or vomiting. Temperature 98.5, pulse 79, respiratory rate 16, blood pressure 107/59, 94% on room air. GENERAL: He is awake, alert, oriented to himself. Answers questions appropriately. Dry mucous membranes. The patient has a dressing on the mid frontal forehead that is clean and dry. No discharge. LUNGS: Clear to auscultation. No wheezing, rales or rhonchi. HEART: S1, S2. Irregularly irregular. ABDOMEN: Soft, nontender, nondistended. Positive bowel sounds. EXTREMITIES: No cyanosis, clubbing or pitting edema. Laboratory data and imaging studies have been reviewed. ASSESSMENT AND PLAN: This is an 86-year-old male who lives alone on chronic Apixaban and metoprolol for atrial fibrillation, hypertension, chronic kidney disease stage III, Eusebio's disease, hypertension, hyperlipidemia, coronary artery disease, angioplasty, congestive heart failure (CHF), ejection fraction of 50% on echo in 2013, severe mitral regurgitation and tricuspid regurgitation, presented to the emergency room with complaints of diarrhea and found to have Clostridium (C.) difficile colitis. The patient is currently on oral Flagyl and doing well with no loose bowel movements. Awaiting physical therapy (PT) clearance for discharge home. CURRENT ISSUES: 1. Clostridium (C.) difficile, currently on oral Flagyl to complete a 10 to 14 days course and Bacid. 2. Atrial fibrillation, rate controlled on metoprolol, currently on Eliquis for prophylaxis. 3. Acute kidney injury due to dehydration from diarrhea, improved. No sign of heart failure. Appears to be euvolemic. 4. Acute metabolic encephalopathy secondary to Clostridium (C.) difficile colitis and infection, slightly improved. 5. Congestive heart failure (CHF), euvolemic. Ejection fraction 50%. Daily weights. 6. Eusebio's disease. On chronic Florinef. 7. Dyslipidemia, chronic. 8. History of coronary artery disease, on statins. 9. History of valve disease. 10. Hypertension. Appears to be stable.
[2017-02-26 14:00] VITALS: BP 104/62
[2017-02-26] MEDS: MIRTAZAPINE 15 MG TAB PO SCH (21:19)
[2017-02-26] MEDS: SIMVASTATIN 40 MG TAB PO SCH (21:20)
[2017-02-26 22:00] VITALS: BP 121/70
[2017-02-27] MEDS: metroNIDAZOLE (FLAGYL) 500 MG TAB PO SCH ×3 (05:12→21:33)
[2017-02-27 06:00] VITALS: BP 103/60
[2017-02-27] MEDS ORDERED: BACITAB PO (07:00)
[2017-02-27] MEDS ORDERED: FLAG500T PO (07:00)
[2017-02-27 07:02] LABS: MEAN CORPUSCULAR HGB CONC 33.2 g/dl (32.0-36.5); MEAN CORPUSCULAR VOLUME 99.5 fl (80.0-96.0); RED CELL DISTRIBUTION WIDTH 13.2 % (11.5-14.5); WHITE BLOOD COUNT 5.7 10^3/uL (4.0-10.0)
[2017-02-27 07:25] LABS: ANION GAP 4 MEQ/L (8-16); BLOOD UREA NITROGEN 11 MG/DL (7-18); CALCIUM LEVEL 8.3 MG/DL (8.8-10.2); CARBON DIOXIDE LEVEL 27 MEQ/L (21-32); CHLORIDE LEVEL 110 MEQ/L (98-107); CREATININE FOR GFR 1.05 MG/DL (0.70-1.30); GLOMERULAR FILTRATION RATE > 60.0 (>35); GLUCOSE, FASTING 95 MG/DL (83-110); POTASSIUM SERUM 4.1 MEQ/L (3.5-5.1); SODIUM LEVEL 141 MEQ/L (136-145)
[2017-02-27] MEDS: FERROUS GLUCONATE 324 MG TAB PO SCH ×2 (08:16→21:33)
[2017-02-27] MEDS: METOPROLOL TART 25 MG TABLET PO SCH ×2 (08:16→21:00)
[2017-02-27] MEDS: FLUDROCORTISONE ACETATE 0.1 MG TAB PO SCH (08:16)
[2017-02-27] MEDS: ASCORBIC ACID 500 MG TAB PO SCH ×2 (08:16→21:33)
[2017-02-27] MEDS: LACTOBACILLUS ACIDOPHILUS CAP (BACID) PO SCH ×3 (08:16→17:17)
[2017-02-27] MEDS: TAMSULOSIN 0.4 MG CAP PO SCH (08:16)
[2017-02-27] MEDS: APIXABAN 2.5 MG TAB (ELIQUIS) PO SCH ×2 (08:16→21:33)
--- NOTE | 2017-02-27 12:10 | IPN ---
DATE: 02/27/2017 The patient is seen and examined at the bedside. Chart has been reviewed. According to the patient, he feels comfortable. No nausea or vomiting. Tolerating his diet well. No bowel movements. Per physical therapy, patient is unstable and requires 24-7 care at home. VITALS: Temperature 97.6, pulse 81, respiratory rate 18, blood pressure 103/60, 92% on room air. GENERAL: Awake, alert, oriented to person. Answers questions appropriately. Dry mucous membranes. Dressing on mid forehead, clean and dry. No discharge. LUNGS: Clear to auscultation. No wheezing, rales or rhonchi. HEART: S1, S2. Sinus rhythm. ABDOMEN: Soft, nontender, nondistended. Positive bowel sounds. EXTREMITIES: No cyanosis, clubbing or pitting edema. Laboratory data and imaging studies have been reviewed and microbiology. ASSESSMENT AND PLAN: This is an 86-year-old male who lives alone on chronic Apixaban and metoprolol for atrial fibrillation, hypertension, chronic kidney disease stage III, Powell's disease, hypertension, hyperlipidemia, coronary artery disease (CAD), angioplasty, congestive heart failure (CHF), ejection fraction of 50% on echo, severe mitral regurgitation (MR) and tricuspid regurgitation (TR) who presented to the emergency room with complaints of diarrhea and found to have Clostridium (C.) difficile, currently on oral Flagyl doing well with no diarrhea. Awaiting physical therapy (PT) clearance for discharge home. Recommendation for 24-7 care. CURRENT ISSUES: 1. Clostridium (C.) difficile, currently on oral Flagyl to complete a 10 to 14 day course, and Bacid. 2. Atrial fibrillation, rate controlled on metoprolol, currently on Eliquis for prophylaxis. 3. Acute kidney failure due to dehydration, resolved. Currently with normal baseline creatinine. No signs of heart failure. Appears to be euvolemic. 4. Acute metabolic encephalopathy secondary to Clostridium (C.) difficile. 5. Dehydration, improved 6. Congestive heart failure (CHF), euvolemic. Ejection fraction 50%. 7. Severe TR and MR. 8. Powell's disease, on chronic Florinef. 9. Dyslipidemia, chronic. 10. History of coronary artery disease, on statins. 11. History of valve disease, stable. 12. Hypertension. Stable. DISPOSITION: Awaiting 24-7 care to be provided by the family prior to discharge home. Otherwise, the patient is medically stable for discharge.
[2017-02-27] MEDS: SIMVASTATIN 40 MG TAB PO SCH (21:33)
[2017-02-27] MEDS: MIRTAZAPINE 15 MG TAB PO SCH (21:33)
[2017-02-27 22:00] VITALS: BP 110/66
[2017-02-28] MEDS: metroNIDAZOLE (FLAGYL) 500 MG TAB PO SCH (05:11)
[2017-02-28 06:00] VITALS: BP 133/69
[2017-02-28 07:12] LABS: MEAN CORPUSCULAR HEMOGLOBIN 32.3 pg (27.0-33.0); MEAN CORPUSCULAR HGB CONC 32.4 g/dl (32.0-36.5); MEAN CORPUSCULAR VOLUME 99.7 fl (80.0-96.0); RED CELL DISTRIBUTION WIDTH 13.1 % (11.5-14.5); WHITE BLOOD COUNT 5.8 10^3/uL (4.0-10.0)
[2017-02-28 07:32] LABS: ANION GAP 7 MEQ/L (8-16); BLOOD UREA NITROGEN 11 MG/DL (7-18); CALCIUM LEVEL 8.2 MG/DL (8.8-10.2); CARBON DIOXIDE LEVEL 26 MEQ/L (21-32); CHLORIDE LEVEL 109 MEQ/L (98-107); GLOMERULAR FILTRATION RATE > 60.0 (>35); GLUCOSE, FASTING 100 MG/DL (83-110); SODIUM LEVEL 142 MEQ/L (136-145)
[2017-02-28 08:20] VITALS: BP 139/70
[2017-02-28 08:26] VITALS: BP 139/70
[2017-02-28] MEDS: LACTOBACILLUS ACIDOPHILUS CAP (BACID) PO SCH (08:26)
[2017-02-28] MEDS: METOPROLOL TART 25 MG TABLET PO SCH (08:26)
[2017-02-28] MEDS: FERROUS GLUCONATE 324 MG TAB PO SCH (08:26)
[2017-02-28] MEDS: ASCORBIC ACID 500 MG TAB PO SCH (08:26)
[2017-02-28] MEDS: FLUDROCORTISONE ACETATE 0.1 MG TAB PO SCH (08:26)
[2017-02-28] MEDS: APIXABAN 2.5 MG TAB (ELIQUIS) PO SCH (08:27)
[2017-02-28] MEDS: TAMSULOSIN 0.4 MG CAP PO SCH (08:27)
[2017-02-28] MEDS ORDERED: MEGA40SU PO (08:34)
[2017-02-28] MEDS ORDERED: MEGESTROL 40 MG TAB PO SCH (09:00)
[2017-02-28] MEDS ORDERED: LASI20TA PO (11:17)
--- NOTE | 2017-02-28 11:47 | DSES ---
DATE OF ADMISSION: 02/19/2017 DATE OF DISCHARGE: CONSULTANTS DURING THIS ADMISSION: None. PRIMARY CARE PHYSICIAN: Araseli Ulloa DO PRIMARY DISCHARGE DIAGNOSES: C. difficile colitis. Acute metabolic encephalopathy secondary to infection C. difficile colitis. Acute kidney injury secondary to dehydration from diarrhea. Congestive heart failure (CHF), euvolemic, severe tricuspid regurgitation (TR) and mitral regurgitation (MR). History of [place]'s disease. Dyslipidemia. History of coronary artery disease. History of valve disease. Hypertension. DISCHARGE MEDICATIONS: - Lasix 20 mg daily - spironolactone 25 mg daily - lactobacillus one tablet twice a day for 7 days - Megace 400 mg daily - Flagyl 500 mg every 8 hours for 7 days - Eliquis 2.5 twice a day - ascorbic acid 500 twice a day - ferrous sulfate 324 twice a day - Florinef 0.1 daily - lovastatin 40 every evening - mag ox 400 daily - metoprolol 100 twice a day - mirtazapine 15 at bedtime - Flomax 0.4 daily FOLLOWUP INSTRUCTIONS: Patient is to followup immediately with primary care physician to assess his volume status and resume his dose of 40 mg Lasix twice a day if the patient appears to be fluid overloaded. The patient's Lasix has been discontinued and spironolactone due to acute kidney injury and dehydration from diarrhea. Low doses have been resumed at discharge. HOSPITAL COURSE: This is an 86-year-old male who lives alone, on chronic apixaban, metoprolol for atrial fibrillation, hypertension and chronic kidney disease stage III, [place]'s disease, hypertension, hyperlipidemia, CAD, CHF, ejection fraction of 50% on echo, angioplasty with severe MR and TR, who presented to the ER with complaints of diarrhea, found to have C. difficile colitis with altered mental status. Patient was started on Flagyl with resolution of diarrhea. Per physical therapy, patient will require 24/7 care, which the family can provide. During the admission, he was found to be severely dehydrated with acute kidney injury from persistent diarrhea, creatinine of 1.88 with discharge creatinine of 1.1. The patient's Lasix and spironolactone were held during this admission, resumed at discharge low dose spironolactone 25 daily and Lasix 20 mg daily. Patient is to see his primary care physician to assess his volume status and to resume his usual dose of Lasix at 40 twice a day if the patient appears to be fluid overloaded. LABS ON DISCHARGE: White count 5.8, hemoglobin 12, hematocrit 39, platelet count 196, sodium 142, potassium 4, chloride 109, bicarb 26, BUN 11, creatinine 1.1, and glucose of 100. Microbiology: C. difficile positive 02/19. IMAGING STUDIES: CT abdomen and pelvis 02/18 no obstructive or inflammatory bowel changes. Diffuse sigmoid diverticulosis. No evidence of hydronephrosis or nephrolithiasis. Band like scarring in the lingula of the left lung, infiltrate or atelectasis right lower lobe. 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 Time spent on discharge 40 minutes.
[2017-03-02 08:07] LABS: OSMOLARITY STOOL 296 mOsmol/kg (Not Estab.); POTASSIUM FECAL 22 mmol/L (.); SODIUM FECAL 122 mmol/L (.)
== END 2017-02-28 11:05 | disposition home health service (06) | DRG 371 ==
LOC: M ED 20:52 → M ED INP 02-19 04:21 → M MSPAV 02-19 05:32
PROVIDERS: ADMIT Internal Medicine Nephrology; ATTEND General Practice
DX: A04.72 Enterocolitis due to Clostridium difficile, not specified as recurrent (principal); G93.41 Metabolic encephalopathy; I50.22 Chronic systolic (congestive) heart failure; N17.9 Acute kidney failure, unspecified; E27.40 Unspecified adrenocortical insufficiency; I13.0 Hypertensive heart and chronic kidney disease with heart failure and stage 1 through stage 4 chronic kidney disease, or unspecified chronic kidney disease; E78.5 Hyperlipidemia, unspecified; I48.91 Unspecified atrial fibrillation; R26.81 Unsteadiness on feet; I25.10 Atherosclerotic heart disease of native coronary artery without angina pectoris; N18.3 Chronic kidney disease, stage 3 (moderate); Z96.0 Presence of urogenital implants; Z98.62 Peripheral vascular angioplasty status; Z85.828 Personal history of other malignant neoplasm of skin; S00.91XA Abrasion of unspecified part of head, initial encounter; W01.190A Fall on same level from slipping, tripping and stumbling with subsequent striking against furniture, initial encounter; Y92.019 Unspecified place in single-family (private) house as the place of occurrence of the external cause; Y93.01 Activity, walking, marching and hiking; Y99.9 Unspecified external cause status; Z79.01 Long term (current) use of anticoagulants; Z79.899 Other long term (current) drug therapy

== ENCOUNTER → 2017-03-06 | Outpatient (CLI) | payer MEDICARE, BC ==
[~2017-03-06] MED LIST changes: +FERR325T16 PO; +FLAG500T PO; +FLOM5CAP PO; +MAGN400T2 PO; +PATIENT COMMENT
[2017-03-06 18:05] LABS: BASO # 0.1 10^3/uL (0.0-0.2); BASO % 1.1 % (0.0-1.0); EOS # 0.1 10^3/uL (0.0-0.50); EOS % 2.3 % (0.0-3.0); IMMATURE GRANULOCYTE % 0.2 % (0-0); LYMPH # 2.1 10^3/uL (1.5-4.5); LYMPH % 34.1 % (24.0-44.0); MEAN CORPUSCULAR HEMOGLOBIN 33.2 pg (27.0-33.0); MEAN CORPUSCULAR HGB CONC 32.7 g/dl (32.0-36.5); MEAN CORPUSCULAR VOLUME 101.4 fl (80.0-96.0); MONO # 0.5 10^3/uL (0.0-0.8); MONO % 8.8 % (0.0-5.0); NEUTROPHILS # 3.3 10^3/uL (1.8-7.7); NEUTROPHILS % 53.5 % (36.0-66.0); PLATELET COUNT, AUTOMATED 181 10^3/uL (150-450); RED CELL DISTRIBUTION WIDTH 13.5 % (11.5-14.5); WHITE BLOOD COUNT 6.2 10^3/uL (4.0-10.0)
[2017-03-06 18:35] LABS: ALBUMIN/GLOBULIN RATIO 0.97 (1.00-1.93); BILIRUBIN,TOTAL 0.4 MG/DL (0.2-1.0); CALCIUM LEVEL 8.3 MG/DL (8.8-10.2); CREATININE FOR GFR 1.32 MG/DL (0.70-1.30); GLOMERULAR FILTRATION RATE 54.7 (>35); PERCENT SATURATION 65.3 % (19.7-50.0); POTASSIUM SERUM 4.7 MEQ/L (3.5-5.1); TOTAL PROTEIN 6.1 GM/DL (6.4-8.2)
[2017-03-06 18:51] LABS: FOLATE 15.8 NG/ML
== END ==
LOC: M SMT 13:20
PROVIDERS: ATTEND Family Medicine
DX: N17.8 Other acute kidney failure (principal); I48.1 Persistent atrial fibrillation; D64.9 Anemia, unspecified; I50.31 Acute diastolic (congestive) heart failure

== ENCOUNTER → 2017-05-15 | Outpatient (CLI) | payer MEDICARE, BC ==
[2017-05-15 17:37] LABS: BASO # 0.1 10^3/uL (0.0-0.2); BASO % 0.8 % (0.0-1.0); EOS # 0.2 10^3/uL (0.0-0.50); EOS % 1.7 % (0.0-3.0); IMMATURE GRANULOCYTE % 0.3 % (0-0); LYMPH # 4.1 10^3/uL (1.5-4.5); LYMPH % 41.1 % (24.0-44.0); MEAN CORPUSCULAR HEMOGLOBIN 32.8 pg (27.0-33.0); MEAN CORPUSCULAR HGB CONC 32.2 g/dl (32.0-36.5); MEAN CORPUSCULAR VOLUME 101.7 fl (80.0-96.0); MONO # 0.9 10^3/uL (0.0-0.8); MONO % 8.9 % (0.0-5.0); NEUTROPHILS # 4.7 10^3/uL (1.8-7.7); NEUTROPHILS % 47.2 % (36.0-66.0); PLATELET COUNT, AUTOMATED 190 10^3/uL (150-450); RED CELL DISTRIBUTION WIDTH 12.9 % (11.5-14.5)
[2017-05-15 18:11] LABS: ALBUMIN 3.5 GM/DL (3.2-5.2); ALBUMIN/GLOBULIN RATIO 1.03 (1.00-1.93); BILIRUBIN,TOTAL 0.6 MG/DL (0.2-1.0); CALCIUM LEVEL 8.7 MG/DL (8.8-10.2); CREATININE FOR GFR 1.56 MG/DL (0.70-1.30); GLOMERULAR FILTRATION RATE 45.1 (>35); POTASSIUM SERUM 4.3 MEQ/L (3.5-5.1); TOTAL PROTEIN 6.9 GM/DL (6.4-8.2)
== END ==
LOC: M SMT 15:13
PROVIDERS: ATTEND Family Medicine
DX: I50.32 Chronic diastolic (congestive) heart failure (principal); I48.1 Persistent atrial fibrillation

== ENCOUNTER → 2017-06-03 | Outpatient (CLI) | payer MEDICARE, BC ==
[2017-06-03 14:09] LABS: ANION GAP 10 MEQ/L (8-16); BLOOD UREA NITROGEN 20 MG/DL (7-18); CALCIUM LEVEL 8.5 MG/DL (8.8-10.2); CARBON DIOXIDE LEVEL 29 MEQ/L (21-32); CHLORIDE LEVEL 99 MEQ/L (98-107); CREATININE FOR GFR 1.68 MG/DL (0.70-1.30); GLOMERULAR FILTRATION RATE 41.4 (>35); GLUCOSE, FASTING 154 MG/DL (83-110); NT-PRO BNP 4126 PG/ML (<450); POTASSIUM SERUM 4.3 MEQ/L (3.5-5.1); SODIUM LEVEL 138 MEQ/L (136-145)
== END ==
LOC: M SMT 11:02
DX: I50.32 Chronic diastolic (congestive) heart failure (principal)
CPT/HCPCS: 80048

== ENCOUNTER 2017-11-11 20:14 | Emergency (ER) | payer BC, MEDICARE ==
[2017-11-11 19:11] LABS: BASO # 0.1 10^3/uL (0.0-0.2); BASO % 0.8 % (0.0-1.0); EOS # 0.1 10^3/uL (0.0-0.50); EOS % 0.7 % (0.0-3.0); HEMATOCRIT 43.6 % (42.0-52.0); HEMOGLOBIN 15.2 g/dl (13.5-17.5); IMMATURE GRANULOCYTE % 0.3 % (0-3.0); LYMPH # 2.4 10^3/uL (1.5-4.5); LYMPH % 26.7 % (24.0-44.0); MEAN CORPUSCULAR HEMOGLOBIN 34.1 pg (27.0-33.0); MEAN CORPUSCULAR HGB CONC 34.9 g/dl (32.0-36.5); MEAN CORPUSCULAR VOLUME 97.8 fl (80.0-96.0); MONO # 0.7 10^3/uL (0.0-0.8); MONO % 8.3 % (0.0-5.0); NEUTROPHILS # 5.6 10^3/uL (1.8-7.7); NEUTROPHILS % 63.2 % (36.0-66.0); PLATELET COUNT, AUTOMATED 155 10^3/uL (150-450); RED BLOOD COUNT 4.46 10^6/uL (4.30-6.10); RED CELL DISTRIBUTION WIDTH 12.5 % (11.5-14.5); WHITE BLOOD COUNT 8.9 10^3/uL (4.0-10.0)
[2017-11-11 19:27] LABS: INR 1.16
[2017-11-11 19:28] LABS: PARTIAL THROMBOPLASTIN TIME 27.5 SECONDS (26.8-37.9)
[2017-11-11 19:35] LABS: ALBUMIN 3.1 GM/DL (3.2-5.2); ALBUMIN/GLOBULIN RATIO 0.97 (1.00-1.93); ALKALINE PHOSPHATASE 81 U/L (45-117); ALT/SGPT 26 U/L (12-78); ANION GAP 12 MEQ/L (8-16); AST/SGOT 23 U/L (7-37); BILIRUBIN,TOTAL 0.8 MG/DL (0.2-1.0); BLOOD UREA NITROGEN 18 MG/DL (7-18); CALCIUM LEVEL 8.8 MG/DL (8.8-10.2); CARBON DIOXIDE LEVEL 25 MEQ/L (21-32); CHLORIDE LEVEL 95 MEQ/L (98-107); CREATININE FOR GFR 1.86 MG/DL (0.70-1.30); GLOMERULAR FILTRATION RATE 36.8 (>35); GLUCOSE, FASTING 94 MG/DL (70-100); POTASSIUM SERUM 4.5 MEQ/L (3.5-5.1); SODIUM LEVEL 132 MEQ/L (136-145); TOTAL PROTEIN 6.3 GM/DL (6.4-8.2)
== END 2017-11-11 20:46 | disposition home or self-care (01) ==
LOC: M ED 20:14
DX: R26.81 Unsteadiness on feet (principal); R29.6 Repeated falls; F03.90 Unspecified dementia, unspecified severity, without behavioral disturbance, psychotic disturbance, mood disturbance, and anxiety; I51.9 Heart disease, unspecified; I48.91 Unspecified atrial fibrillation; N18.9 Chronic kidney disease, unspecified; E78.5 Hyperlipidemia, unspecified; N40.0 Benign prostatic hyperplasia without lower urinary tract symptoms; Z79.01 Long term (current) use of anticoagulants; Z79.2 Long term (current) use of antibiotics; Z79.899 Other long term (current) drug therapy; Z87.891 Personal history of nicotine dependence
CPT/HCPCS: 70450

== ENCOUNTER 2017-11-26 15:33 | Emergency (ER) | payer MEDICARE, BC ==
[2017-11-26 16:40] LABS: BASO # 0.1 10^3/uL (0.0-0.2); BASO % 0.7 % (0.0-1.0); EOS # 0.3 10^3/uL (0.0-0.50); EOS % 3.7 % (0.0-3.0); HEMATOCRIT 45.6 % (42.0-52.0); HEMOGLOBIN 15.7 g/dl (13.5-17.5); IMMATURE GRANULOCYTE % 0.4 % (0-3.0); LYMPH # 2.2 10^3/uL (1.5-4.5); LYMPH % 27.4 % (24.0-44.0); MEAN CORPUSCULAR HEMOGLOBIN 34.1 pg (27.0-33.0); MEAN CORPUSCULAR HGB CONC 34.4 g/dl (32.0-36.5); MEAN CORPUSCULAR VOLUME 99.1 fl (80.0-96.0); MONO # 0.7 10^3/uL (0.0-0.8); MONO % 8.4 % (0.0-5.0); NEUTROPHILS # 4.9 10^3/uL (1.8-7.7); NEUTROPHILS % 59.4 % (36.0-66.0); PLATELET COUNT, AUTOMATED 152 10^3/uL (150-450); RED CELL DISTRIBUTION WIDTH 12.8 % (11.5-14.5); WHITE BLOOD COUNT 8.2 10^3/uL (4.0-10.0)
[2017-11-26] MEDS ORDERED: TETANUS/DIPHTHERIA TOX ADSORB ADULT 0.5ML SYR/VIAL (90714) IM (16:45)
[2017-11-26] MEDS: NS 500 ML IV (16:47)
[2017-11-26 16:50] LABS: INR 1.15; PROTHROMBIN TIME 14.9 SECONDS (12.1-14.4)
[2017-11-26 16:51] LABS: PARTIAL THROMBOPLASTIN TIME 39.1 SECONDS (25.4-37.6)
[2017-11-26 17:13] LABS: ALBUMIN 3.1 GM/DL (3.2-5.2); ALBUMIN/GLOBULIN RATIO 0.79 (1.00-1.93); ALKALINE PHOSPHATASE 81 U/L (45-117); ALT/SGPT 26 U/L (12-78); ANION GAP 7 MEQ/L (8-16); AST/SGOT 30 U/L (7-37); BILIRUBIN,DIRECT 0.2 MG/DL (0.0-0.2); BILIRUBIN,TOTAL 0.7 MG/DL (0.2-1.0); BLOOD UREA NITROGEN 23 MG/DL (7-18); CALCIUM LEVEL 8.6 MG/DL (8.8-10.2); CARBON DIOXIDE LEVEL 30 MEQ/L (21-32); CHLORIDE LEVEL 94 MEQ/L (98-107); CK-MB VALUE MASS 2.8 NG/ML (<3.6); CPK CREATINE PHOSPHOKINASE 197 U/L (39-308); CREATININE FOR GFR 1.96 MG/DL (0.70-1.30); GLOMERULAR FILTRATION RATE 34.6 (>35); GLUCOSE, FASTING 108 MG/DL (70-100); LIPASE 40 U/L (73-393); MB/CK RELATIVE INDEX 1.42 (< OR =4); POTASSIUM SERUM 4.2 MEQ/L (3.5-5.1); SODIUM LEVEL 131 MEQ/L (136-145); TROPONIN I < 0.02 NG/ML (< 0.10)
[2017-11-26] MEDS: ADACEL/BOOSTRIX VACCINE (DIPHTH/PERTUSS/ACELL/TETANUS)0.5ML SYR (90715) IM (17:46)
== END 2017-11-26 17:54 | disposition short-term general hospital (02) ==
LOC: M ED 15:33
DX: S06.6X0A Traumatic subarachnoid hemorrhage without loss of consciousness, initial encounter (principal); S51.002A Unspecified open wound of left elbow, initial encounter; S01.112A Laceration without foreign body of left eyelid and periocular area, initial encounter; W06.XXXA Fall from bed, initial encounter; Y92.092 Bedroom in other non-institutional residence as the place of occurrence of the external cause; I48.91 Unspecified atrial fibrillation; I50.9 Heart failure, unspecified; I13.0 Hypertensive heart and chronic kidney disease with heart failure and stage 1 through stage 4 chronic kidney disease, or unspecified chronic kidney disease; N18.3 Chronic kidney disease, stage 3 (moderate); I25.10 Atherosclerotic heart disease of native coronary artery without angina pectoris; F17.200 Nicotine dependence, unspecified, uncomplicated; Z79.01 Long term (current) use of anticoagulants; Z79.899 Other long term (current) drug therapy
CPT/HCPCS: 90715

== ENCOUNTER → 2017-12-10 | Outpatient (REF) ==
[2017-12-10 12:08] LABS: HEMATOCRIT 40.1 % (42.0-52.0); HEMOGLOBIN 13.3 g/dl (13.5-17.5); MEAN CORPUSCULAR HEMOGLOBIN 33.8 pg (27.0-33.0); MEAN CORPUSCULAR HGB CONC 33.2 g/dl (32.0-36.5); PLATELET COUNT, AUTOMATED 234 10^3/uL (150-450); RED BLOOD COUNT 3.93 10^6/uL (4.30-6.10); RED CELL DISTRIBUTION WIDTH 13.1 % (11.5-14.5); WHITE BLOOD COUNT 6.6 10^3/uL (4.0-10.0)
[2017-12-10 12:24] LABS: ANION GAP 7 MEQ/L (8-16); BLOOD UREA NITROGEN 20 MG/DL (7-18); CALCIUM LEVEL 8.6 MG/DL (8.8-10.2); CARBON DIOXIDE LEVEL 28 MEQ/L (21-32); CHLORIDE LEVEL 105 MEQ/L (98-107); CREATININE FOR GFR 1.22 MG/DL (0.70-1.30); GLOMERULAR FILTRATION RATE 59.8 (>35); GLUCOSE, FASTING 136 MG/DL (70-100); MAGNESIUM LEVEL 2.7 MG/DL (1.8-2.4); SODIUM LEVEL 140 MEQ/L (136-145)
== END ==
DX: D64.9 Anemia, unspecified (principal)

== ENCOUNTER → 2017-12-12 | Outpatient (REF) ==
[2017-12-12 19:31] LABS: HEMATOCRIT 40.1 % (42.0-52.0); MEAN CORPUSCULAR HEMOGLOBIN 34.2 pg (27.0-33.0); MEAN CORPUSCULAR HGB CONC 32.4 g/dl (32.0-36.5); MEAN CORPUSCULAR VOLUME 105.5 fl (80.0-96.0); PLATELET COUNT, AUTOMATED 245 10^3/uL (150-450); RED CELL DISTRIBUTION WIDTH 13.2 % (11.5-14.5); WHITE BLOOD COUNT 7.5 10^3/uL (4.0-10.0)
== END ==
DX: I50.9 Heart failure, unspecified (principal)

== ENCOUNTER → 2017-12-13 | Outpatient (REF) ==
[2017-12-13 10:07] LABS: ANION GAP 11 MEQ/L (8-16); BLOOD UREA NITROGEN 23 MG/DL (7-18); CALCIUM LEVEL 8.4 MG/DL (8.8-10.2); CARBON DIOXIDE LEVEL 25 MEQ/L (21-32); CHLORIDE LEVEL 105 MEQ/L (98-107); CREATININE FOR GFR 1.25 MG/DL (0.70-1.30); GLOMERULAR FILTRATION RATE 58.2 (>35); GLUCOSE, FASTING 144 MG/DL (70-100); POTASSIUM SERUM 4.6 MEQ/L (3.5-5.1); SODIUM LEVEL 141 MEQ/L (136-145); URIC ACID 6.9 MG/DL (3.5-7.2)
== END ==
DX: M10.9 Gout, unspecified (principal); I50.9 Heart failure, unspecified

== ENCOUNTER → 2017-12-17 | Outpatient (REF) ==
[2017-12-17 11:15] LABS: HEMATOCRIT 40.3 % (42.0-52.0); HEMOGLOBIN 13.3 g/dl (13.5-17.5); MEAN CORPUSCULAR HEMOGLOBIN 33.6 pg (27.0-33.0); MEAN CORPUSCULAR VOLUME 101.8 fl (80.0-96.0); PLATELET COUNT, AUTOMATED 275 10^3/uL (150-450); RED BLOOD COUNT 3.96 10^6/uL (4.30-6.10); WHITE BLOOD COUNT 9.9 10^3/uL (4.0-10.0)
[2017-12-17 11:38] LABS: MAGNESIUM LEVEL 2.3 MG/DL (1.8-2.4)
[2017-12-17 11:41] LABS: ANION GAP 6 MEQ/L (8-16); BLOOD UREA NITROGEN 33 MG/DL (7-18); CALCIUM LEVEL 8.7 MG/DL (8.8-10.2); CARBON DIOXIDE LEVEL 33 MEQ/L (21-32); CHLORIDE LEVEL 102 MEQ/L (98-107); GLOMERULAR FILTRATION RATE > 60.0 (>35); GLUCOSE, FASTING 125 MG/DL (70-100); POTASSIUM SERUM 4.1 MEQ/L (3.5-5.1); SODIUM LEVEL 141 MEQ/L (136-145)
== END ==
DX: D64.9 Anemia, unspecified (principal)

== ENCOUNTER → 2017-12-20 | Outpatient (REF) ==
[2017-12-20 11:26] LABS: HEMATOCRIT 41.9 % (42.0-52.0); HEMOGLOBIN 13.8 g/dl (13.5-17.5); MEAN CORPUSCULAR HEMOGLOBIN 33.8 pg (27.0-33.0); MEAN CORPUSCULAR HGB CONC 32.9 g/dl (32.0-36.5); MEAN CORPUSCULAR VOLUME 102.7 fl (80.0-96.0); PLATELET COUNT, AUTOMATED 238 10^3/uL (150-450); RED BLOOD COUNT 4.08 10^6/uL (4.30-6.10); RED CELL DISTRIBUTION WIDTH 13.3 % (11.5-14.5); WHITE BLOOD COUNT 7.4 10^3/uL (4.0-10.0)
[2017-12-20 11:50] LABS: ANION GAP 11 MEQ/L (8-16); BLOOD UREA NITROGEN 29 MG/DL (7-18); CALCIUM LEVEL 8.1 MG/DL (8.8-10.2); CARBON DIOXIDE LEVEL 28 MEQ/L (21-32); CHLORIDE LEVEL 102 MEQ/L (98-107); CREATININE FOR GFR 1.24 MG/DL (0.70-1.30); GLOMERULAR FILTRATION RATE 58.7 (>35); GLUCOSE, FASTING 83 MG/DL (70-100); MAGNESIUM LEVEL 2.4 MG/DL (1.8-2.4); POTASSIUM SERUM 3.8 MEQ/L (3.5-5.1); SODIUM LEVEL 141 MEQ/L (136-145)
== END ==
DX: I50.9 Heart failure, unspecified (principal)

== ENCOUNTER → 2017-12-24 | Outpatient (REF) | DX: I10 Essential (primary) hypertension (principal); D64.9 Anemia, unspecified ==

== ENCOUNTER → 2017-12-26 | Outpatient (REF) ==
[2017-12-26 18:30] LABS: HEMATOCRIT 45.1 % (42.0-52.0); HEMOGLOBIN 14.4 g/dl (13.5-17.5); MEAN CORPUSCULAR HGB CONC 31.9 g/dl (32.0-36.5); MEAN CORPUSCULAR VOLUME 106.6 fl (80.0-96.0); PLATELET COUNT, AUTOMATED 166 10^3/uL (150-450); RED BLOOD COUNT 4.23 10^6/uL (4.30-6.10); RED CELL DISTRIBUTION WIDTH 13.1 % (11.5-14.5); WHITE BLOOD COUNT 8.4 10^3/uL (4.0-10.0)
[2017-12-26 19:02] LABS: ANION GAP 14 MEQ/L (8-16); BLOOD UREA NITROGEN 22 MG/DL (7-18); CALCIUM LEVEL 8.3 MG/DL (8.8-10.2); CARBON DIOXIDE LEVEL 21 MEQ/L (21-32); CHLORIDE LEVEL 101 MEQ/L (98-107); CREATININE FOR GFR 1.45 MG/DL (0.70-1.30); GLUCOSE, FASTING 88 MG/DL (70-100); POTASSIUM SERUM 4.6 MEQ/L (3.5-5.1); SODIUM LEVEL 136 MEQ/L (136-145)
== END ==
DX: R05 Cough (principal)

== ENCOUNTER → 2017-12-31 | Outpatient (REF) ==
[2017-12-31 11:51] LABS: ANION GAP 12 MEQ/L (8-16); BLOOD UREA NITROGEN 34 MG/DL (7-18); CALCIUM LEVEL 8.9 MG/DL (8.8-10.2); CARBON DIOXIDE LEVEL 24 MEQ/L (21-32); CHLORIDE LEVEL 101 MEQ/L (98-107); CREATININE FOR GFR 1.39 MG/DL (0.70-1.30); GLOMERULAR FILTRATION RATE 51.5 (>35); GLUCOSE, FASTING 124 MG/DL (70-100); POTASSIUM SERUM 4.2 MEQ/L (3.5-5.1); SODIUM LEVEL 137 MEQ/L (136-145)
== END ==
DX: I50.9 Heart failure, unspecified (principal)

== ENCOUNTER → 2018-01-07 | Outpatient (REF) ==
[2018-01-07 10:23] LABS: ANION GAP 12 MEQ/L (8-16); BLOOD UREA NITROGEN 40 MG/DL (7-18); CALCIUM LEVEL 8.8 MG/DL (8.8-10.2); CARBON DIOXIDE LEVEL 27 MEQ/L (21-32); CHLORIDE LEVEL 96 MEQ/L (98-107); CREATININE FOR GFR 1.57 MG/DL (0.70-1.30); GLOMERULAR FILTRATION RATE 44.7 (>35); GLUCOSE, FASTING 89 MG/DL (70-100); NT-PRO BNP 3167 PG/ML (<450); POTASSIUM SERUM 4.1 MEQ/L (3.5-5.1); SODIUM LEVEL 135 MEQ/L (136-145)
== END ==
DX: I50.9 Heart failure, unspecified (principal)

== ENCOUNTER → 2018-01-10 | Outpatient (REF) ==
[2018-01-10 11:00] LABS: ANION GAP 8 MEQ/L (8-16); BLOOD UREA NITROGEN 33 MG/DL (7-18); CALCIUM LEVEL 8.4 MG/DL (8.8-10.2); CARBON DIOXIDE LEVEL 28 MEQ/L (21-32); CHLORIDE LEVEL 96 MEQ/L (98-107); CREATININE FOR GFR 1.43 MG/DL (0.70-1.30); GLOMERULAR FILTRATION RATE 49.8 (>35); GLUCOSE, FASTING 90 MG/DL (70-100); POTASSIUM SERUM 4.3 MEQ/L (3.5-5.1); SODIUM LEVEL 132 MEQ/L (136-145)
== END ==
DX: I50.9 Heart failure, unspecified (principal)

== ENCOUNTER → 2018-01-14 | Outpatient (REF) | payer BC, MEDICARE ==
[2018-01-14 09:31] LABS: HEMATOCRIT 45.4 % (42.0-52.0); HEMOGLOBIN 15.5 g/dl (13.5-17.5); MEAN CORPUSCULAR HEMOGLOBIN 33.7 pg (27.0-33.0); MEAN CORPUSCULAR HGB CONC 34.1 g/dl (32.0-36.5); MEAN CORPUSCULAR VOLUME 98.7 fl (80.0-96.0); PLATELET COUNT, AUTOMATED 188 10^3/uL (150-450); RED CELL DISTRIBUTION WIDTH 12.7 % (11.5-14.5); WHITE BLOOD COUNT 11.3 10^3/uL (4.0-10.0)
[2018-01-14 09:49] LABS: ANION GAP 12 MEQ/L (8-16); BLOOD UREA NITROGEN 40 MG/DL (7-18); CALCIUM LEVEL 8.6 MG/DL (8.8-10.2); CARBON DIOXIDE LEVEL 26 MEQ/L (21-32); CHLORIDE LEVEL 96 MEQ/L (98-107); CREATININE FOR GFR 1.48 MG/DL (0.70-1.30); GLOMERULAR FILTRATION RATE 47.9 (>35); GLUCOSE, FASTING 90 MG/DL (70-100); MAGNESIUM LEVEL 2.5 MG/DL (1.8-2.4); POTASSIUM SERUM 4.1 MEQ/L (3.5-5.1); SODIUM LEVEL 134 MEQ/L (136-145)
== END ==
DX: I10 Essential (primary) hypertension (principal); I50.9 Heart failure, unspecified

== ENCOUNTER → 2018-01-16 | Outpatient (REF) | payer MEDICARE, BC | LOC: M LAB REF 16:33 | DX: L02.91 Cutaneous abscess, unspecified (principal) | CPT/HCPCS: 87186 ==